=== PATIENT | male | born 2000 | race Caucasian/White ===

== ENCOUNTER 2020-07-02 13:04 | Emergency (ER) | payer OTHER ==
[~2020-07-02] VITALS: Ht 193 cm; Wt 113.4 kg
[2020-07-02 13:05] VITALS: BP 168/92
[2020-07-02] MEDS ORDERED: LIDOCAINE VISCOUS 2% SOLN 15ML UDC SS ONE (13:30)
[2020-07-02] MEDS ORDERED: LIDO2SOL17 PO (13:35)
[2020-07-02] MEDS ORDERED: CETI10CA2 PO (13:35)
== END 2020-07-02 13:41 | disposition home or self-care (01) ==
LOC: M ED 13:04
DX: J02.8 Acute pharyngitis due to other specified organisms (principal)